=== PATIENT | male | born 2000 | race American Indian/Alaskan Native ===

== ENCOUNTER 2022-05-26 20:57 | Emergency (ER) | payer OTHER ==
[~2022-05-26] VITALS: Ht 190.5 cm; Wt 79.4 kg
== END 2022-05-27 00:56 | disposition home or self-care (01) ==
LOC: ED 20:57
DX: F19.10 Other psychoactive substance abuse, uncomplicated (principal)
CPT/HCPCS: 36415; 70450; 80053; 81003; 82553; 85025; 85060; 96374; 99284-25; G0480; J2405; J7121